=== PATIENT | female | born 1995 | race Caucasian/White ===

== ENCOUNTER 2019-03-31 05:02 | Emergency (ER) | payer OTHER ==
[~2019-03-31] VITALS: Ht 165.1 cm; Wt 74.8 kg
--- NOTE | 2019-03-31 05:12 | NUR ---
PT TAKEN TO BED 2
--- NOTE | 2019-03-31 05:18 | NUR ---
CAME IN WITH C/O LET EYE PAIN, REDNESS, SWELLING WITH D/C FOR 3 DAYS, NO TRAUMA NOR INJURY
--- NOTE | 2019-03-31 05:20 | NUR ---
VISUAL ACUITY BOTH EYE 20/100 , LEFT EYE 20/100 . RT EYE 20/70
--- NOTE | 2019-03-31 05:30 | NUR ---
SEEN AAND EXAMINED BY ERMD WITH ORDERS, CARRIED OUT
[2019-03-31 05:42] VITALS: BP 122/75
[2019-03-31 06:18] VITALS: BP 118/78
--- NOTE | 2019-03-31 06:18 | NUR ---
Patient discharged with v/s stable. Written and verbal after care instructions given and explained. Patient alert, oriented and verbalized understanding of instructions. Ambulatory with steady gait. All questions addressed prior to discharge. ID band removed. Patient advised to follow up with PMD. Rx of ACETAMINOPHEN 500MG, TOBRAMYCIN 3% given. Patient educated on indication of medication including possible reaction and side effects. Opportunity to ask questions provided and answered.
== END 2019-03-31 06:18 | disposition home or self-care (01) ==
LOC: MED 05:02
DX: H10.32 Unspecified acute conjunctivitis, left eye (principal); Z98.890 Other specified postprocedural states
CPT/HCPCS: 99283